=== PATIENT | female | born 1985 ===

== ENCOUNTER 2016-10-01 04:39 | Emergency (ER) | payer SELFPAY ==
[2016-10-01 04:53] VITALS: RESP 16
[2016-10-01] MEDS ORDERED: Sodium Chloride 0.9% 1,000 ML IV ONE (04:58)
[2016-10-01] MEDS ORDERED: Sodium Chloride 0.9% 1,000 ML ONE (05:09)
[2016-10-01 05:13] LABS: BASO % 0.3 % (0.0-2.0); EOS % 0.6 % (0.0-4.0); HEMOGLOBIN 7.1 g/dL (11.0-16.0); LYMPH # 1.4 K/uL (1.0-4.3); LYMPH % 21.9 % (20.0-40.0); MEAN CELL VOLUME 63.2 fL (81.0-99.0); MEAN CORPUSCULAR HEMOGLOBIN 18.8 pg (27.0-31.0); MEAN CORPUSCULAR HGB CONC 29.7 g/dL (33.0-37.0); MEAN PLATELET VOLUME 8.5 fL (7.2-11.7); MONO # 0.3 K/uL (0.0-0.8); MONO % 4.7 % (0.0-10.0); NEUT # 4.8 K/uL (1.8-7.0); NEUT % 72.5 % (50.0-75.0); NRBC % 0.1 % (0.0-2.0); RBC 3.8 Mil/uL (3.80-5.20); RED CELL DISTRIBUTION WIDTH 19.6 % (11.5-14.5); WHITE BLOOD COUNT 6.6 K/uL (4.8-10.8)
[2016-10-01 05:24] LABS: ALBUMIN 4.4 g/dL (3.5-5.0)
[2016-10-01 05:26] LABS: GFR AFRICAN-AMERICAN > 60; GFR NON-AFRICAN AMERICAN > 60
[2016-10-01 05:27] LABS: ALB/GLOB RATIO 1.1 (1.0-2.1); ALT/SGPT 24 U/L (9-52); AST/SGOT 25 U/L (14-36); BLOOD UREA NITROGEN 10 mg/dL (7-17); CALCIUM 9.9 mg/dl (8.6-10.4); LIPASE 40 U/L (23-300)
--- NOTE | 2016-10-01 05:44 | C.PDOC ---
History Of Present Illness A 31 y/o F brought in by EMS for ETOH intoxication found on the street vomiting [employer]. Pt c/o nausea and vomiting. (+) AOB and admits to ETOH intake. Denies suicidal or homicidal ideation, or any other physical complaints. Time Seen by Provider: 10/01/16 05:48 Chief Complaint (Nursing): Substance Abuse History Per: Patient History/Exam Limitations: no limitations Onset/Duration Of Symptoms: Hrs Current Symptoms Are (Timing): Still Present Suicide/Self Injury Attempted (Context): None Modifying Factor(s): Alcohol Severity: Mild Associated Symptoms: denies: Suicidal Thoughts, Suicidal Plan Involuntary Hold By: None Recent travel outside of the [place]: No Additional History Per: Patient Past Medical History Reviewed: Historical Data, Nursing Documentation, Vital Signs Vital Signs: Last Vital Signs Temp 98.8 F 10/01/16 04:51 Pulse 97 H 10/01/16 04:51 Resp 16 10/01/16 04:51 BP 123/88 10/01/16 04:51 Pulse Ox 97 10/01/16 06:56 Family History: States: Unknown Family Hx - Social History Hx Alcohol Use: Yes Hx Substance Use: No - Immunization History Hx Tetanus Toxoid Vaccination: No Hx Influenza Vaccination: No Hx Pneumococcal Vaccination: No Review Of Systems Except As Marked, All Systems Reviewed And Found Negative. Constitutional: Positive for: Other (ETOH intoxicated). Negative for: Fever, Chills Cardiovascular: Negative for: Chest Pain, Palpitations Respiratory: Negative for: Cough, Shortness of Breath Gastrointestinal: Positive for: Nausea, Vomiting Psych: Negative for: Suicidal ideation, Other (Homicidal ideation) Physical Exam - Physical Exam Appears: Non-toxic, No Acute Distress, Other (ETOH intoxicated. (+) AOB) Skin: Warm, Dry Head: Atraumatic, Normacephalic Cardiovascular: Rhythm Regular, No Murmur Respiratory: Normal Breath Sounds, No Accessory Muscle Use, No Rales, No Rhonchi , No Wheezing Gastrointestinal/Abdominal: Soft, Tenderness (Mild epigastric tenderness) Neurological/Psych: Oriented x3 (Awake and alert), Other (No focal deficit) Gait: Steady ED Course And Treatment - Laboratory Results Result Diagrams: 10/01/16 06:05 10/01/16 05:11 O2 Sat by Pulse Oximetry: 97 (RA) Pulse Ox Interpretation: Normal Medical Decision Making Medical Decision Making: Impression: ETOH intoxication found on the street vomiting [employer]IAN. Pt c/o nausea and vomiting. Plans: -ED Obs -Reassess 04:55. Pt is alert and oriented with a steady gait. Pt is requesting food now. Pt does not want to stay in hospital. He wants to follow up in [facility] with his PMD for follow up of the anemia. Vitals are stable. No lightheadedness, no dizziness. Disposition Counseled Patient/Family Regarding: Diagnosis - Disposition Referrals: [facility] [Outside] Disposition: AGAINST MEDICAL ADVICE Disposition Time: 06:47 Condition: STABLE Prescriptions: Famotidine [Pepcid] 20 mg PO BID #20 tab Instructions: Gastritis (DC), Abuse of Alcohol (ED), Anemia (ED) - POA Present On Arrival: None - Clinical Impression Clinical Impression: Alcohol abuse, Gastritis, Anemia - Scribe Statement The provider has reviewed the documentation as recorded by the Scribcailin henao All medical record entries made by the Scribe were at my direction and personally dictated by me. I have reviewed the chart and agree that the record accurately reflects my personal performance of the history, physical exam, medical decision making, and the department course for this patient. I have also personally directed, reviewed, and agree with the discharge instructions and disposition.
[2016-10-01 06:10] LABS: EOS % 0.4 % (0.0-4.0); LYMPH # 1.1 K/uL (1.0-4.3); LYMPH % 17.2 % (20.0-40.0); MONO # 0.2 K/uL (0.0-0.8); NEUT # 4.9 K/uL (1.8-7.0); WHITE BLOOD COUNT 6.2 K/uL (4.8-10.8)
[2016-10-01 06:21] LABS: IRON 23 ug/dL (37-170)
[2016-10-01 06:30] LABS: % IRON SATURATION 5 (20-55); TOTAL IRON BINDING CAPACITY 439 ug/dL (250-450)
[2016-10-01 06:50] LABS: BASO % 0.5 % (0.0-2.0); HEMOGLOBIN 6.8 g/dL (11.0-16.0); MEAN CORPUSCULAR HGB CONC 28.6 g/dL (33.0-37.0); MONO % 3.8 % (0.0-10.0); NEUT % 78.1 % (50.0-75.0); RBC 3.75 Mil/uL (3.80-5.20); RED CELL DISTRIBUTION WIDTH 19.8 % (11.5-14.5)
[2016-10-01 07:16] VITALS: BP 106/61; PULSE 100; TEMP 97.5; O2SAT 100
[2016-10-01 07:26] LABS: FOLATE 9.7 ng/mL
== END 2016-10-01 07:17 | disposition left against medical advice (07) ==
LOC: C.ER 04:39
DX: K29.70 Gastritis, unspecified, without bleeding (principal); D64.9 Anemia, unspecified; F10.10 Alcohol abuse, uncomplicated; Y90.6 Blood alcohol level of 120-199 mg/100 ml
CPT/HCPCS: 80053; 82607; 82746; 83540; 83550; 83690; 85025; 86850; 86900; 96374; 96375; 99284; G0328; G0480; J2405; J7040